=== PATIENT | female | born 1980 | race Two or more races ===

== ENCOUNTER 2020-12-07 13:02 | Inpatient (IN) | payer MEDICAID, OTHER ==
[~2020-12-07] VITALS: Ht 162.6 cm; Wt 86.1 kg
[2020-12-07 14:30] LABS: Basophils # (auto) 0 10 ^3/uL (0-0.2); Basophils % (auto) 0.5 % (0.0-2.0); Eosinophils # (auto) 0.1 10 ^3/uL (0-0.8); Eosinophils % (auto) 1.4 % (0.0-7.0); Hematocrit 44.2 % (36.0-46.0); Hemoglobin 15.2 g/dL (12.2-16.2); Lymphocytes # (auto) 2.2 10 ^3/uL (0.4-5.4); Lymphocytes % (auto) 23.6 % (10.0-50.0); Mean Corpuscular Hemoglobin 31.3 pg (28.0-32.0); Mean Corpuscular Hgb Conc. 34.4 g/dL (32.0-36.0); Monocytes # (auto) 0.5 10 ^3/uL (0-1.3); Monocytes % (auto) 5.7 % (0.0-12.0); Neutrophils # (auto) 6.5 10 ^3/uL (1.6-8.6); Neutrophils % (auto) 68.8 % (37.0-80.0); Platelet Count (auto) 315 10^3/uL (140-450); Red Blood Cells 4.86 10^6/uL (4.0-5.20); Red Cell Distribution Width 13.2 % (11.8-14.3); White Blood Cell 9.5 10^3/uL (4.4-10.8)
[2020-12-07 14:54] LABS: Albumin 4.1 g/dL (3.4-5.0); Calcium 8.6 mg/dL (8.5-10.1)
[2020-12-07 14:58] LABS: BUN/Creatinine Ratio 12.5; Bilirubin, Total 1.8 mg/dL (0.2-1.0); Total Protein 8.3 g/dL (6.4-8.2)
[2020-12-07] MEDS ORDERED: ONDANSETRON HCL 4 MG/2 ML VIAL IV PRN (15:45)
[2020-12-07] MEDS ORDERED: MORPHINE SULF INJ 2 MG/ML SYRINGE 1ML IV PRN (15:45)
[2020-12-07] MEDS ORDERED: BARIUM SULFATE 98% 340 GM PWDR ONE ×2 (15:53→15:55)
[2020-12-07] MEDS ORDERED: GASTROGRAFIN 120 ML SOL ONE (15:53)
[2020-12-07] MEDS ORDERED: IOHEXOL 300 MG/ML 100ML BOTTLE IJ ONE (16:04)
[2020-12-07] MEDS ORDERED: EZ-GAS II GRANULES (RADIOLOGY USE) PO ONE (16:42)
[2020-12-08 04:10] VITALS: BP 109/72
[2020-12-08 05:00] VITALS: BP 109/72
[2020-12-08 09:00] VITALS: BP 99/57
[2020-12-08] MEDS: PANTOPRAZOLE 40 MG/10 ML VIAL INJ IV SCH (09:36)
[2020-12-08 13:00] VITALS: BP 102/61
[2020-12-08 17:00] VITALS: BP 96/51
[2020-12-08 22:00] VITALS: BP 104/55
[2020-12-09 05:00] VITALS: BP 114/51
[2020-12-09 09:00] VITALS: BP 100/63
[2020-12-09] MEDS: PANTOPRAZOLE 40 MG/10 ML VIAL INJ IV SCH (09:07)
[2020-12-09 10:51] LABS: INR 0.94 (0.9-1.15)
[2020-12-09] MEDS ORDERED: NALOXONE HCL 0.4 MG/ML VIAL ONE (10:55)
[2020-12-09] MEDS ORDERED: LIDOCAINE VISCOUS 2% 15ML UD ONE (10:55)
[2020-12-09] MEDS ORDERED: diphenhdrAMINE HCL 50 MG/1 ML VL ONE (10:55)
[2020-12-09] MEDS ORDERED: FLUMAZENIL 0.1 MG/ML INJ 10ML MDV IV ONE (10:55)
[2020-12-09 13:00] VITALS: BP 103/69
[2020-12-09] MEDS: MIDAZOLAM HCL 5 MG/ML-1ML VIAL ONE ×3 (13:16→13:26)
[2020-12-09] MEDS: fentaNYL CITRATE 100 MCG/2 ML VL ONE ×3 (13:16→13:26)
[2020-12-09] MEDS ORDERED: PANT40TA2 PO (16:16)
[2020-12-09] MEDS ORDERED: SUCR1TAB22 PO (16:16)
[2020-12-09 16:55] VITALS: BP 93/55
[2020-12-09 17:00] VITALS: BP 93/55
[2020-12-09] MEDS ORDERED: SUCRALFATE 1 GM/10 ML ORAL SUSP PO SCH (17:00)
[2020-12-09] MEDS ORDERED: PANTOPRAZOLE 40 MG TAB PO SCH (22:00)
== END 2020-12-09 17:40 | disposition home or self-care (01) | DRG 392 ==
LOC: ER 13:02 → OVERFLOW 15:45 → WEST WING 12-08 04:10
PROVIDERS: ADMIT Nurse Practitioner Acute Care; ATTEND Internal Medicine
PROC: 0DB68ZX Excision of Stomach, Via Natural or Artificial Opening Endoscopic, Diagnostic (ICD-10-PCS; 2020-12-09)
PROC: 0DB38ZX Excision of Lower Esophagus, Via Natural or Artificial Opening Endoscopic, Diagnostic (ICD-10-PCS; principal; 2020-12-09 13:21)
DX: K29.70 Gastritis, unspecified, without bleeding (principal); R13.10 Dysphagia, unspecified; K20.90 Esophagitis, unspecified without bleeding; Z83.3 Family history of diabetes mellitus; Z20.822 Contact with and (suspected) exposure to COVID-19; K22.8 Other specified diseases of esophagus
CPT/HCPCS: 36415; 43239; 43450; 70490; 71046; 71260; 74220; 80053; 82247; 84443; 84702; 85025; 85610; 87426; 93005; C9113; G0378; J2250